=== PATIENT | female | born 1970 | race Caucasian/White ===

== ENCOUNTER 2016-12-29 10:00 | Day surgery (SDC) | payer OTHER ==
[~2016-12-29] VITALS: Ht 157.5 cm; Wt 74.6 kg
[2016-12-29 11:33] VITALS: Ht 157.5 cm; Wt 74.6 kg
[2016-12-29] MEDS ORDERED: ferrous sulfate (12:00)
[2016-12-29] MEDS ORDERED: folic acid (12:00)
--- NOTE | 2016-12-29 13:45 | OPR ---
Date/Time of Note Date/Time of Note DATE: 12/29/16 TIME: 13:42 Operative Report Preoperative Diagnosis Screening colonoscopy Postoperative Diagnosis Normal: Normal terminal ileum Operation/Procedure Performed Indication: 46-year-old female undergoing this procedure for colon cancer screening strong family history of colon cancer mother had it at the age of 50. Consent: The risk of the procedure related related complication anesthetic risk auditory discussed and informed consent was obtained. Details of the procedure: Patient was brought to the GI lab sedated with Versed 4 mg fentanyl 75 mg after optimal sedation scope was passed with much is into rectum and advanced slowly through sigmoid descending transverse colon all the way to cecum and finally into terminal ileum. Terminal ileum was normal up to 2 feet. Rest of the colon was normal it was thoroughly inspected while coming out. Rectal was not done very small hemorrhoids identified. Clarity was good cleanliness was good. Impression: 1. Normal finding all the way into the cecum 2. Normal terminal ileum up to 2 feet 3. Claritin cleanliness was good Plan: High-fiber diet Next colonoscopy after 5 years. CHIVO TOMAS MD Dec 29, 2016 13:45
[2016-12-29] MEDS ORDERED: FENTAnyl 50 MCG/ML VIAL ONE (13:54)
[2016-12-29] MEDS ORDERED: MIDAZOLAM 1 MG/ML 2 ML INJ ONE ×2 (13:54)
[2016-12-29 14:23] VITALS: BP 102/78; RESP 12
== END 2016-12-29 18:05 | disposition home or self-care (01) ==
LOC: GIL 10:00
PROVIDERS: ATTEND Internal Medicine Gastroenterology
DX: Z12.11 Encounter for screening for malignant neoplasm of colon (principal); Z80.0 Family history of malignant neoplasm of digestive organs
CPT/HCPCS: 45378; J2250; J3010